=== PATIENT | female | born 1950 | race Caucasian/White ===

== ENCOUNTER 2019-01-12 20:20 | Emergency (ER) | payer MEDICARE, OTHER ==
[~2019-01-12] VITALS: Ht 162.6 cm; Wt 59.0 kg
[2019-01-12 20:20] VITALS: BP 120/62
--- NOTE | 2019-01-12 20:20 | NUR ---
PATIENT BIB BLS TO ER BED 4.
--- NOTE | 2019-01-12 20:21 | NUR ---
PT WAS BIBA WITH C/O SOB. PT STATED SHE TOOK MEDICATION FOR BP, MED UNKNOWN, AND 30 MINUTES LATER SHE FELT SOB. PT IS SAT. AT 100 ON RA. PT IS A/OX4. PT CAME FROM FACILITY THAD PANCHAL. PT STATED SHE DOES HAVE SOME ANXIETY. [facility] STATED THE RN FROM FACILITY GAVE ATIVAN PRIOR TO ER. ER MD MADE AWARE OF STATUS. SAFTEY MEASURES IN PLACE, BED RAILS UP X 2.
--- NOTE | 2019-01-12 20:25 | NUR ---
Dr. Gilmore evaluating patient at bedside.
[2019-01-12] MEDS ORDERED: BISA-213 RC (20:35)
[2019-01-12] MEDS ORDERED: ATOR40TA PO (20:35)
[2019-01-12] MEDS ORDERED: ALBU0.0912 IH (20:35)
[2019-01-12] MEDS ORDERED: FURO-572 PO (20:35)
[2019-01-12] MEDS ORDERED: NA P133E RC (20:35)
[2019-01-12] MEDS ORDERED: DOCU-299 PO (20:35)
[2019-01-12] MEDS ORDERED: ASPI-1718 PO (20:35)
[2019-01-12] MEDS ORDERED: ACET-1195 PO (20:35)
[2019-01-12] MEDS ORDERED: LISI2.5T12 PO (20:35)
[2019-01-12] MEDS ORDERED: ACET-2214 PO (20:35)
[2019-01-12] MEDS ORDERED: SYN.05 PO ×2 (20:35)
[2019-01-12] MEDS ORDERED: ACET-2619 PO (20:35)
[2019-01-12] MEDS ORDERED: DIT5 PO (20:41)
[2019-01-12] MEDS ORDERED: MAGN400S60 PO (20:41)
[2019-01-12] MEDS ORDERED: BUDE1AER2 IH (20:41)
[2019-01-12] MEDS ORDERED: [UNRECOGNIZED DRUG - CODE] TP (20:41)
[2019-01-12] MEDS ORDERED: METO25TA PO (20:41)
[2019-01-12 20:48] LABS: BASOPHILS # (AUTO) 0.1 K/uL (0.00-0.22); BASOPHILS % (AUTO) 0.8 % (0.0-2.0); EOSINOPHILS # (AUTO) 0.1 K/uL (0-0.4); EOSINOPHILS % (AUTO) 0.8 % (0.0-4.0); HEMATOCRIT 40.7 % (36-48); HEMOGLOBIN 13.2 g/dL (12.0-16.0); LYMPHOCYTES # (AUTO) 1.1 K/uL (2.5-16.5); LYMPHOCYTES % (AUTO) 12.1 % (20.5-51.1); MEAN CORPUSCULAR HEMOGLOBIN 28 pg (27-31); MEAN CORPUSCULAR HGB CONC 33 g/dL (33-37); MEAN CORPUSCULAR VOLUME 84.7 fL (80-94); MONOCYTES # (AUTO) 0.5 K/uL (0.8-1.0); MONOCYTES % (AUTO) 5.9 % (1.7-9.3); NEUTROPHILS # (AUTO) 7.1 K/uL (1.8-7.7); NEUTROPHILS % (AUTO) 80.4 % (42.2-75.2); PLATELET COUNT (AUTO) 230 K/uL (140-450); RED CELL DISTRIBUTION WIDTH 17.4 % (11.6-13.7); WHITE BLOOD COUNT (AUTO) 8.9 K/uL (4.8-10.8)
[2019-01-12 21:00] LABS: ANION GAP 12.5 (8-16); CARBON DIOXIDE 29.1 mmol/L (21-32); CREATININE 0.9 mg/dL (0.6-1.3); POTASSIUM 3.6 mmol/L (3.5-5.1)
[2019-01-12 21:05] LABS: ALBUMIN 3.7 g/dL (3.4-5.0); TOTAL BILIRUBIN 0.6 mg/dL (0.0-1.0)
[2019-01-12] MEDS ORDERED: ALPRAZolam 0.5 MG TAB PO ONE (21:30)
--- NOTE | 2019-01-12 22:00 | NUR ---
CONTACTED [facility] REGARDING TRANSPORT HOME. SPOKE TO FACILITY COORDINATOR REGARDING TRANSPORT. RN LET US KNOW THEY DO NOT PROVIDE TRANSPORT. LET RN KNOW PT WILL BE D/C AND TRANSPORTED BACK VIA [facility].
[2019-01-12 22:35] VITALS: BP 117/60
--- NOTE | 2019-01-12 22:35 | NUR ---
Patient discharged with v/s stable. Written and verbal after care instructions given and explained. Patient verbalized understanding. WHEEL CHAIR ASSISTED TO [facility] BACK TO FACILITY.. All questions addressed prior to discharge. Advised to follow up with PMD.
== END 2019-01-12 22:35 | disposition home or self-care (01) ==
LOC: MED 20:20
DX: F41.9 Anxiety disorder, unspecified (principal); J45.909 Unspecified asthma, uncomplicated; I11.0 Hypertensive heart disease with heart failure; I50.9 Heart failure, unspecified; E03.9 Hypothyroidism, unspecified; Z95.810 Presence of automatic (implantable) cardiac defibrillator; Z79.1 Long term (current) use of non-steroidal anti-inflammatories (NSAID); Z79.82 Long term (current) use of aspirin; Z79.899 Other long term (current) drug therapy; Z88.0 Allergy status to penicillin; Z88.1 Allergy status to other antibiotic agents
CPT/HCPCS: 36415; 71045; 80053; 83880; 84484; 85025; 93005; 99284; Q0092